=== PATIENT | male | born 1945 | race Caucasian/White ===

== ENCOUNTER 2021-04-24 10:58 | Emergency (ER) | payer OTHER ==
[~2021-04-24] VITALS: Ht 177.8 cm; Wt 98.4 kg
[~2021-04-24 10:58] MED LIST: DICLOFENAC SODI50 MG PO; GLIPIZIDE ER5 MG; NORFLEX100MG PO
[2021-04-24] MEDS ORDERED: ZESTRIL5 MG (11:21)
[2021-04-24] MEDS ORDERED: GLUMETZA500 MG (11:21)
== END 2021-04-24 16:54 | disposition home or self-care (01) ==
LOC: ER 10:58
DX: K52.9 Noninfective gastroenteritis and colitis, unspecified (principal); K80.20 Calculus of gallbladder without cholecystitis without obstruction; R10.84 Generalized abdominal pain

== ENCOUNTER 2023-01-07 18:18 | Emergency (ER) | payer OTHER ==
[~2023-01-07] VITALS: Ht 177.8 cm; Wt 96.2 kg
[~2023-01-07 18:18] MED LIST changes: +GLUMETZA500 MG; +ZESTRIL5 MG
[2023-01-07] MEDS ORDERED: GRALISE600 MG (18:33)
[2023-01-07] MEDS ORDERED: JARDIANCE10 MG PO (18:33)
== END 2023-01-07 23:28 | disposition home or self-care (01) ==
LOC: ER 18:18
DX: S32.029A Unspecified fracture of second lumbar vertebra, initial encounter for closed fracture (principal); S80.02XA Contusion of left knee, initial encounter; S70.02XA Contusion of left hip, initial encounter; W19.XXXA Unspecified fall, initial encounter; Y93.9 Activity, unspecified; Y92.9 Unspecified place or not applicable; Y99.9 Unspecified external cause status; M25.552 Pain in left hip; M25.562 Pain in left knee

== ENCOUNTER 2023-01-27 10:18 | Outpatient (CLI) | payer OTHER ==
[~2023-01-27 10:18] MED LIST changes: +DICLOFENAC POTA50 MG PO; +GRALISE600 MG; +JARDIANCE10 MG PO
== END 2023-01-27 10:32 | disposition home or self-care (01) ==
LOC: MRI 10:18
DX: M25.562 Pain in left knee (principal)
CPT/HCPCS: 73718

== ENCOUNTER 2023-01-31 09:48 | Outpatient (CLI) | payer OTHER | END 2023-01-31 09:53 | disposition home or self-care (01) | LOC: RAD 09:48 | PROVIDERS: ATTEND Orthopaedic Surgery | DX: M25.561 Pain in right knee (principal); M25.562 Pain in left knee; S90.02XA Contusion of left ankle, initial encounter ==

== ENCOUNTER 2023-01-31 10:02 | Outpatient (CLI) | payer OTHER | END 2023-01-31 11:00 | disposition home or self-care (01) | LOC: NUCLEAR 10:02 | PROVIDERS: ATTEND Orthopaedic Surgery | DX: M79.605 Pain in left leg (principal) ==